=== PATIENT | male | born 1950 | race African-American/Black ===

== ENCOUNTER 2021-03-07 20:37 | Inpatient (IN) ==
[2021-03-08 02:16] LABS: VBG HCO3 27 mEq/L (21-27); VBG PCO2 49 mmHg (41-51); VBG PH 7.35 pH Units (7.32-7.42); VBG PO2 29 mmHg (25-50)
[2021-03-08 02:30] LABS: Basophils % 0.1 %; Eosinophils % 0.1 %; Hematocrit 51.5 % (37.5-50.1); Hemoglobin 17.4 g/dL (12.9-16.9); Immature Granulocytes % 0.5 % (0-4); Lymphocytes # 0.4 K/mcL (0.6-4.6); Lymphocytes % 3.3 %; Mean Corpuscular HGB Conc 33.8 g/dL (31.6-35.5); Mean Corpuscular Hemoglobin 27.8 pg (28.0-33.3); Mean Corpuscular Volume 82.1 fL (83.0-100.0); Mean Platelet Volume 11.2 fL (9.4-12.4); Monocytes # 0.5 K/mcL (0.0-1.3); Monocytes % 4.7 %; Neutrophils # 10.3 K/mcL (1.6-8.9); Platelet Count 184 K/mcL (140-400); Red Blood Count 6.27 M/mcL (4.19-5.50); Red Cell Distribution Width 13.4 % (11.5-14.5); Segmented Neutrophils % 91.3 %; White Blood Count 11.3 K/mcL (4.3-11.1)
[2021-03-08 02:32] LABS: INR 1.2; Prothrombin Time 13.7 Seconds (9.4-12.1)
[2021-03-08 02:35] LABS: Activated Partial Thrombo Time 33.9 Seconds (26.0-36.0)
[2021-03-08 02:40] LABS: Albumin 3.8 g/dL (3.5-5.7); Albumin/Globulin Ratio 0.9 (1.1-2.2); Bilirubin,Direct 0.3 mg/dL (0.0-0.2); Bilirubin,Indirect 0.7 mg/dL (0.0-1.0); Calcium 9.9 mg/dL (8.6-10.3); Globulin 4.3 g/dL (2.4-3.5); Magnesium 3.2 mg/dL (1.6-2.6); Potassium 3.6 mEq/L (3.5-5.1); Total Protein 8.1 g/dL (6.4-8.9)
[2021-03-08 03:07] LABS: Troponin I 0.08 ng/mL (< 0.04)
[2021-03-08] MEDS ORDERED: Isovue-370 500 ML BOTTLE IVP ONE (03:08)
[2021-03-08] MEDS ORDERED: Melatonin 3 MG TABLET PO PRN (04:58)
[2021-03-08] MEDS ORDERED: Naloxone 0.4 MG/ML INJ IVP PRN (04:58)
[2021-03-08] MEDS ORDERED: *HR* Heparin 5,000 UNIT/ML VIAL IVP ONE (05:06)
[2021-03-08] MEDS ORDERED: *HR* Heparin 5,000 UNIT/ML VIAL IVP PRN ×2 (05:06)
[2021-03-08] MEDS ORDERED: *HR* Dextrose 50 % in Water (Syg) 50 ML SYRINGE IVP PRN (05:34)
[2021-03-08] MEDS ORDERED: Dextrose Gel 15 GM/37.5 ML TUBE PO PRN ×2 (05:34)
[2021-03-08] MEDS ORDERED: D5% in Water 1,000 ML IVC PRN (05:34)
[2021-03-08] MEDS: cefTRIAXone 1,000 MG in 0.9 % Sodium Chloride Mini Bag 100 ML IVPB SCH (05:59)
[2021-03-08] MEDS: Azithromycin 500 MG in 0.9 % Sodium Chloride 250 ML IVPB SCH (06:18)
[2021-03-08] MEDS: Heparin 25,000UNIT/250ML 1/2NS 25,000 UNIT/250 ML IV.SOLN IVC SCH (06:47)
[2021-03-08 08:01] LABS: Sodium, Urine 20.9 mEq/L
[2021-03-08 08:12] LABS: Bilirubin,Urine Negative (Negative); Blood,Urine Trace (Negative); Clarity,Urine Clear (Clear); Color,Urine Light-Yellow (Yellow); Glucose,Urine (UA) >=1000 mg/dL (Normal); Ketones,Urine Negative (Negative); Leukocyte Esterase,Urine Negative (Negative); Nitrite,Urine Negative (Negative); PH,Urine 5.5 pH Units (5.0-8.0); Protein,Urine 30 mg/dL (Neg-Trace); RBC,Urine 0-3 per hpf (0-3); Urobilinogen,Urine Normal (Normal); WBC,Urine 0-3 per hpf (0-3)
[2021-03-08] MEDS ORDERED: 0.9 % Sodium Chloride 1,000 ML IV ONE (09:25)
[2021-03-08] MEDS: Insulin LISPRO 300 UNITS/3 ML VIAL SUBQ SCH ×3 (09:43→18:05)
[2021-03-08 14:17] LABS: Calcium 9.3 mg/dL (8.6-10.3); Potassium 3.6 mEq/L (3.5-5.1); Troponin I 0.03 ng/mL (< 0.04)
[2021-03-08] MEDS ORDERED: Insulin LISPRO 300 UNITS/3 ML VIAL SUBQ SCH (21:00)
[2021-03-09 04:43] LABS: Basophils % 0.1 %; Hematocrit 45.1 % (37.5-50.1); Immature Granulocytes % 0.6 % (0-4); Lymphocytes # 0.3 K/mcL (0.6-4.6); Lymphocytes % 3.5 %; Mean Corpuscular HGB Conc 33.3 g/dL (31.6-35.5); Mean Corpuscular Hemoglobin 27.8 pg (28.0-33.3); Mean Corpuscular Volume 83.7 fL (83.0-100.0); Mean Platelet Volume 10.7 fL (9.4-12.4); Monocytes # 0.5 K/mcL (0.0-1.3); Monocytes % 5.3 %; Neutrophils # 7.9 K/mcL (1.6-8.9); Platelet Count 179 K/mcL (140-400); Red Blood Count 5.39 M/mcL (4.19-5.50); Red Cell Distribution Width 13.5 % (11.5-14.5); Segmented Neutrophils % 90.5 %; White Blood Count 8.7 K/mcL (4.3-11.1)
[2021-03-09 05:03] LABS: Potassium 3.7 mEq/L (3.5-5.1)
[2021-03-09] MEDS: Azithromycin 500 MG in 0.9 % Sodium Chloride 250 ML IVPB SCH ×2 (05:27→05:41)
[2021-03-09] MEDS: cefTRIAXone 1,000 MG in 0.9 % Sodium Chloride Mini Bag 100 ML IVPB SCH ×2 (05:27→05:41)
[2021-03-09] MEDS: Insulin LISPRO 300 UNITS/3 ML VIAL SUBQ SCH ×2 (09:24→11:55)
[2021-03-09] MEDS: Heparin 25,000UNIT/250ML 1/2NS 25,000 UNIT/250 ML IV.SOLN IVC SCH (09:26)
[2021-03-09 09:32] VITALS: BP 115/73; PULSE 80; TEMP 97.3; O2SAT 97
== END 2021-03-09 13:37 | disposition home or self-care (01) | DRG 177 ==
LOC: EMEROOARM 20:37 → 3ANU 20:37 → SUATTDRO 03-08 04:14 → 3ANU 03-08 04:50
PROVIDERS: ADMIT Student in an Organized Health Care Education/Training Program; ATTEND Internal Medicine